=== PATIENT | male | born 1975 | race Caucasian/White ===

== ENCOUNTER 2024-02-17 01:45 | Emergency (ER) | payer BC, SELFPAY ==
[2024-02-17 01:49] VITALS: BP 139/97
[2024-02-17 01:51] VITALS: BP 139/97
--- NOTE | 2024-02-17 02:47 | ED.SKININJ ---
HPI-Injury
General
Chief Complaint: Skin Problem
Source: patient
Exam Limitations: none
Time Seen by Provider: 02/17/24 02:32
Nursing documentation reviewed up to this point in time: agreed with
History of Present Illness-Injury
Initial Injury comments:
Pleasant 48-year-old male presents to the emergency department with a small comedone on his left upper lateral thigh. Patient has been using Preparation H for hemorrhoid and he feels that this may be an allergic reaction. Denies fever, chills,
nausea or vomiting. Reports no chest pain or shortness of breath. Reports no other lesions or rash.
Past History
Past History
ED Past Medical History: GERD and Other (Pneumonia, Renal calculus, eczema)
ED Past Surgical History: Appendectomy and Urological (Kidney stone removal)
Patient has exhibited threatening behavior?: No
Social History
Tobacco: Non-smoker
Alcohol: None
Drug: None
Personal: Single
Living: with family
Employment: Employed (two jobs)
Family History
Family History: Other (Noncontributory)
Review of Systems
Review of Systems
Allergies reviewed?: Yes
All Other Systems: ROS reviewed and negative except as documented in HPI and ROS
Constitutional: Reports no symptoms
EENT: Reports no symptoms
Respiratory: Reports no symptoms
Cardiac: Reports no symptoms
ABD/GI: Reports no symptoms
: Reports no symptoms
Musculoskeletal: Reports no symptoms
Skin: Reports other (Small area of erythema to the left lateral upper thigh)
Neurological: Reports no symptoms
Endocrine: Reports no symptoms
Hematologic/Lymphatic: Reports no symptoms
Psychiatric: Reports anxiety
Phy Exam
General Physical Exam
General Presentation: well appearing and no apparent distress
General Skin: warm and dry
General Habitus: normal
General Mental: alert
General Hydration: appears well hydrated
ENT Exam
ENT Exam: EOMI, pharynx normal, neck supple and normocephalic
Eye Exam
Eye Exam: PERRL, cornea clear and conjunctiva normal
Cardiovascular Exam
Cardiovascular Exam: regular rate/rhythm, no edema, no murmur and normal peripheral pulses
Pulmonary Exam
Pulmonary Exam: lungs clear, no respiratory distress, no rales, no crackles, no rhonchi, no stridor, no wheezing and no cough
Gastrointestinal Exam
Gastrointestinal Exam: normal bowel sounds, non tender, soft, no organomegaly, no pulsatile mass and non distended
Neurological Exam
Neurological Exam: alert, oriented x3, no motor deficits and speech normal
Musculoskeletal Exam
Musculoskeletal Exam: full ROM and no edema
Skin Exam
Skin Exam: normal color, warm/dry, no rash, no petechia and redness (Area of redness about 1 cm in diameter on the left thigh. No evidence of cellulitis.)
Psychiatric Exam
Psychiatric Exam: normal mood/affect
Course
Vital Signs
Initial and Last Documented VS:
Initial Vital Signs
Temp Pulse Resp BP Pulse Ox
98.7 F 104 20 139/97 96
02/17/24 01:49 02/17/24 01:49 02/17/24 01:49 02/17/24 01:49 02/17/24 01:49
Last Documented Vital Signs
Temp Pulse Resp BP Pulse Ox
98.3 F 100 18 129/100 97
02/17/24 02:58 02/17/24 02:58 02/17/24 02:58 02/17/24 02:58 02/17/24 02:58
*Critical Care Note
Total Time (30-74mins, 75-104mins- exclusive of procedures): Not Applicable
ED Attending Note
-
Portions of this chart may have been created with voice recognition software.� Occasional wrong word or��sound alike� substitutions may have occurred due to the inherent limitations of voice recognition software.
Discharge Plan
Departure
Patient Disposition: Home (Routine Discharge)
Date of Disposition: 02/17/24
Time of Disposition: 03:01
Patient with high blood pressure during this ER visit?: Yes
Condition: Good
Discharge Problem:
early abscess, Hemorrhoid
Instructions: Wound Care (DC), BLOOD PRESSURE
Prescriptions:
New
hydrocortisone acetate [Anusol-HC] 25 mg suppository
25 mg DC HS Qty: 12 0RF
No Action
gentamicin 0.3 % drops
1 drp ophthalmic (eye) QID Qty: 5 0RF
Referrals:
[facility] [Outside]
Jay Jay Sheppard MD [Family Provider] - As needed
Activity Restrictions/Additional Instructions:
Your prescriptions were sent electronically to the pharmacy that you specified.
It was a pleasure meeting you and taking part in your care. We hope for your continued healing and wellness.
Please read discharge instructions in their entirety. However, they are for general education and may not describe your exact diagnosis at discharge. Information on your ER visit and medical conditions were discussed with you along with appropriate
follow up information...
If indicated, please take your medications as instructed and indicated on discharge paperwork.
Please schedule a follow up appointment as directed. Call to schedule an appointment
Please return to the emergency department with ANY change in, persisting, or worsening of symptoms. If any of your symptoms do not improve, or persist, or become more severe within 6-12 hours, please return to the emergency department for further
care.
Please return to the emergency department if you develop a headache, neck pain/stiffness, fever greater than 100.4F, chest pain, shortness of breath, persistent nausea, vomiting, slurred speech, difficulty walking, numbness/tingling, weakness, signs
of infection or any other symptoms that are worrisome to you.
If you have any questions or concerns please do not hesitate to call the Hospital at or E-mail me directly at [email or web address]
Interventions
Interventions:
*Risk Screen - Suicide Last Done: 02/17/24 01:51
*General Assessment Last Done: 02/17/24 01:51
*Neglect/Abuse Screening Last Done: 02/17/24 01:51
ED- Fall Risk Assessment Last Done: 02/17/24 01:51
*ED COVID-19 Vaccine History Last Done: 02/17/24 01:51
ED-Skin Assessment Last Done: 02/17/24 02:59
Discharge Date and Time
Print Language: PORTUGUESE
[2024-02-17 02:56] VITALS: BMI 37.3
[2024-02-17 02:58] VITALS: BP 129/100
== END 2024-02-17 03:26 | disposition home or self-care (01) ==
LOC: EMR 01:45
PROVIDERS: EMERGENCY PHYSICIAN Student in an Organized Health Care Education/Training Program; FAMILY PHYSICIAN Family Medicine
DX: K64.9 Unspecified hemorrhoids (principal); K21.9 Gastro-esophageal reflux disease without esophagitis; Z87.442 Personal history of urinary calculi; Z90.49 Acquired absence of other specified parts of digestive tract
CPT/HCPCS: 99282

== ENCOUNTER → 2024-06-15 14:34 | Outpatient (REF) | payer BC, SELFPAY | LOC: HWRAD 14:34 | PROVIDERS: ATTENDING PHYSICIAN Student in an Organized Health Care Education/Training Program | DX: R10.84 Generalized abdominal pain (principal) | CPT/HCPCS: 76700 ==

== ENCOUNTER 2024-08-22 02:50 | Emergency (ER) | payer BC, SELFPAY ==
[2024-08-22 02:53] VITALS: BP 150/86
--- NOTE | 2024-08-22 03:15 | ED.GENMED ---
History of Present Illness
General
Chief Complaint: Flank Pain
Source: patient
Exam Limitations: none
Time Seen by Provider: 08/22/24 02:58
Nursing documentation reviewed up to this point in time: agreed with
History of Present Illness
History of Present Illness:
This is a 49-year-old male with a past medical history of GERD, kidney stones who presents emergency department today with concerns of testicular pain for the past 4 days. Patient reports that a few days ago, he noticed that he could not sit down
due to testicular pain. Patient states that this pain does relieve with standing up patient states he is able to localize the pain to his posterior left testicle. Patient states he feels like there is a lump in the back of his left testicle that
is swollen and painful. Denies any fevers or chills or nausea or vomiting. He did brief episode of flank pain today when he was bending over or standing at his desk but states that that resolved pretty quickly. Denies any abdominal pain. He also
states that 2 days ago, he noted a sharp burning sensation, once at the tip of his penis with urination and other felt in the shaft of his penis. Patient denies any rashes or lesions on the genitalia. Patient denies any new sexual partners.
Patient denies any penile discharge. Patient denies any diarrhea or constipation. Of note, patient states that he has been wearing snug/tight pain shorts while exercising and walking recently which she believes may be contributing to his symptoms
Past History
Past History
ED Past Medical History: GERD and Other (Pneumonia, Renal calculus, eczema)
ED Past Surgical History: Appendectomy and Urological (Kidney stone removal)
Patient has exhibited threatening behavior?: No
Social History
Tobacco: Non-smoker
Alcohol: None
Drug: None
Personal: Single
Living: with family
Employment: Employed (two jobs)
Family History
Family History: Other (Noncontributory)
Review of Systems
Review of Systems
All Other Systems: ROS reviewed and negative except as documented in HPI and ROS
Phy Exam
Physical Exam
Physical Exam:
General: Patient is well appearing and in no acute distress; non-toxic
Skin: Warm and dry, no rashes or lesions
Head: Normocephalic, atraumatic
Eyes: Sclera non-icteric. EOMs intact. PERRLA.
Cardiac: Regular rate and rhythm, no murmurs
Peripheral Vascular: No lower extremity swelling or edema
Pulm: Normal respiratory effort
Abdomen: No abdominal tenderness to palpation, no abdominal masses
Genitourinary: No palpable inguinal hernia. No palpable testicular masses. Tenderness to palpation noted to the left posterior testicle.
Neuro: CN II-XII intact, no focal neurologic deficits.
Psychiatric: Appropriate mood and affect.
Course
Orders/Labs/Results
Orders:
Orders
08/22/24 03:32
Urine Microscopic Reflex Cult Urgent
Urine Reflex Culture from [facility] [Urinalysis Reflex To Culture] Urgent
Date Specimen was Collected: 08/22/24
Time Specimen was Collected: 03:29
08/22/24 03:42
US Scrotum Urgent
Comment:
Reason For Exam: left posterior testicular pain
08/22/24 03:51
Complete Blood Count/With Diff Urgent
Comprehensive Metabolic Panel Urgent
Abnormal Lab Results
08/22/24 08/22/24
03:32 03:51
RDW 14.6 H %
(11.5-14.5)
Abs Immat Gran (auto) 0.1 H 10^3/uL
(0-0.05)
Absolute Neuts (auto) 7.3 H 10^3/uL
(1.4-6.5)
Absolute Monos (auto) 0.7 H 10^3/uL
(0.1-0.6)
Immature Gran % 0.7 H %
(0-0.5)
Lymphocytes % 20.1 L %
(20.5-51.1)
Sodium 148 H mmol/L
(135-145)
Chloride 110 H mmol/L
(98-107)
Glucose 110 H mg/dl
(70-99)
Ur Occult Blood Reflex 1+ A
(Negative)
Urine Bacteria (Reflex) Few A
(Negative)
Urine Albumin (Reflex) 2+ A
(Neg - Trace)
08/22/24 03:51
08/22/24 03:51
Vital Signs
Initial and Last Documented VS:
Initial Vital Signs
Temp Pulse Resp BP Pulse Ox
98.3 F 104 24 150/86 98
08/22/24 02:53 08/22/24 02:53 08/22/24 02:53 08/22/24 02:53 08/22/24 02:53
Last Documented Vital Signs
Temp Pulse Resp BP Pulse Ox
98.3 F 64 18 137/84 99
08/22/24 02:53 08/22/24 05:36 08/22/24 05:36 08/22/24 05:36 08/22/24 05:36
MDM/Problems Addressed
Differential Diagnosis Includes:
Differentials include UTI, BPH, epididymitis, orchitis, hydrocele, testicular trauma
MDM/Problems Addressed:
49-year-old male with a past medical history of GERD, renal stones, presents emergency department today with concerns of testicular pain for the past few days. Is associated with a day or 2 of dysuria and penile pain. He has no penile discharge.
Of note, patient states that he been wearing tight fitting shorts to wear while exercising. On exam he is afebrile but he does have tenderness to the left posterior testicle. CBC and CMP are unremarkable. His urinalysis does not show any evidence
of acute infection. His ultrasound is negative for any acute abnormalities. In light of tenderness to palpation in light of patient's symptoms, did offer levofloxacin to treat empirically for possible epididymitis. Patient states that he will
take the prescription and reassess with his primary doctor tomorrow to schedule appointment to get their opinion and further treatment. Think is reasonable. Patient stable for discharge.
Chronic conditions affecting care:
GERD
*Pulse Oximetry
Patient hypoxic: no
*Critical Care Note
Total Time (30-74mins, 75-104mins- exclusive of procedures): Not Applicable
Data Reviewed
Review of Other/Old Records Reveals: Records (Reviewed ER physician documentation from 02/17/24 symptoms 24 patient seen for hemorrhoid)
Source: patient and records
Patient Management
Escalation/DeEscalation of care consider admission/obs:
Admit not indicated, patient stable for discharge, case reviewed with attending
ED Attending Note
-
Portions of this chart may have been created with voice recognition software.� Occasional wrong word or��sound alike� substitutions may have occurred due to the inherent limitations of voice recognition software.
Discharge Plan
Departure
Patient Disposition: Home (Routine Discharge)
Date of Disposition: 08/22/24
Time of Disposition: 06:11
Patient with high blood pressure during this ER visit?: Yes
Condition: Good
Discharge Problem:
Left testicular pain
Instructions: Epididymitis and orchitis, Testicular Injury, BLOOD PRESSURE
Prescriptions:
New
levofloxacin 500 mg tablet
500 mg PO DAILY 10 Days Qty: 10 0RF
Referrals:
Jay Jay Sheppard MD [Family Provider] -
Stand Alone Forms: Return to Work
Activity Restrictions/Additional Instructions:
Your ultrasound did not show any evidence of epididymitis. Levofloxacin sent to your pharmacy. You can take 1 tablet twice daily for 10 days. Please follow-up with your primary care provider tomorrow with your scheduled appointment and discuss
your continued symptoms.
I recommend buying scrotal support from [facility].
PLEASE RETURN EMERGENCY DEPARTMENT SHOULD YOU DEVELOP AN ACUTE WORSENING OR SYMPTOMS, CHEST PAIN, SHORTNESS OF BREATH, BURNING WITH URINATION, BLOOD IN YOUR URINE, FLANK PAIN, FEVERS OR CHILLS, OR ANY OTHER SIGNS OR SYMPTOMS WORRISOME TO YOU.
Interventions
Interventions:
*Risk Screen - Suicide Last Done: 08/22/24 03:29
*General Assessment Last Done: 08/22/24 03:29
*Neglect/Abuse Screening Last Done: 08/22/24 03:29
*ED- Fall Risk Assessment Last Done: 08/22/24 03:29
*ED COVID-19 Vaccine History Last Done: 08/22/24 03:31
*Nursing Disposition Last Done: 08/22/24 06:30
SR-Musnua-Cybqmtmkjn Assessment Last Done: 08/22/24 03:29
ED-Male Genitourinary Assessment Last Done: 08/22/24 03:29
Discharge Date and Time
Discharge Date/Time: 08/22/24 06:30
Print Language: BELARUSIAN
[2024-08-22 03:43] LABS: Urine Albumin 2+ (Neg - Trace); Urine Bilirubin Negative (Negative); Urine Character Clear (Clear); Urine Color Yellow; Urine Glucose Negative (Negative); Urine Ketone Negative (Negative); Urine Leukocyte Negative (Negative); Urine Nitrite Negative (Negative); Urine Occult Blood 1+ (Negative); Urine Urobilinogen Negative (Neg - 1+)
[2024-08-22 04:00] LABS: % Eosinophils 1.7 % (0-6); % Immature Granulocytes 0.7 % (0-0.5); % Lymphocytes 20.1 % (20.5-51.1); % Monocytes 7.1 % (1.7-9.3); % Neutrophils 69.4 % (42.2-75.2); Absolute Basophils 0.1 10^3/uL (0-0.2); Absolute Eosinophils 0.2 10^3/uL (0-0.7); Absolute Immature Granulocytes 0.1 10^3/uL (0-0.05); Absolute Lymphocytes 2.1 10^3/uL (1.2-3.4); Absolute Monocytes 0.7 10^3/uL (0.1-0.6); Absolute Neutrophils 7.3 10^3/uL (1.4-6.5); Hematocrit 42.5 % (39.0-52.0); Hemoglobin 14.9 g/dL (13.0-18.0); Mean Corp Hgb Conc. 35.1 g/dL (33.0-37.0); Mean Corpuscular Hgb 29.5 pg (27.0-31.0); Mean Corpuscular Volume 84.2 fL (80.0-94.0); Mean Platelet Volume 9.5 fL (7.4-10.4); Nucleated Red Blood Cells % 0 % (-); Platelet Count 266 10^3/uL (130-400); Red Blood Cell Count 5.05 10^6/uL (4.70-6.10); Red Cell Dist. Width 14.6 % (11.5-14.5); White Blood Cell Count 10.5 10^3/uL (4.8-10.8)
[2024-08-22 04:11] LABS: Urine Mucus Few
[2024-08-22 04:12] LABS: Urine Bacteria Few (Negative); Urine Red Blood Cell 0-2 /HPF (0-2); Urine Squamous Cell 0-2 /LPF (Few)
[2024-08-22 04:35] LABS: ALT (SGPT) 35 U/L (0-50); AST (SGOT) 28 U/L (17-59); Albumin 4.7 g/dl (3.5-5.0); Alkaline Phosphatase 97 U/L (38-126); Blood Urea Nitrogen 19 mg/dl (9-20); Calcium 9.8 mg/dl (8.4-10.2); Carbon Dioxide 26 mmol/L (22-30); Chloride 110 mmol/L (98-107); Glucose 110 mg/dl (70-99); Potassium 4.3 mmol/L (3.5-5.1); Sodium 148 mmol/L (135-145); Total Bilirubin 0.8 mg/dl (0.2-1.3); Total Protein 7.8 g/dl (6.3-8.2); eGFR > 60.00
[2024-08-22 05:36] VITALS: BP 137/84
== END 2024-08-22 06:30 | disposition home or self-care (01) ==
LOC: EMR 02:50
PROVIDERS: Physician Assistant; EMERGENCY PHYSICIAN Student in an Organized Health Care Education/Training Program; FAMILY PHYSICIAN Family Medicine
DX: N50.812 Left testicular pain (principal); K21.9 Gastro-esophageal reflux disease without esophagitis; L30.9 Dermatitis, unspecified; Z87.442 Personal history of urinary calculi; Z90.49 Acquired absence of other specified parts of digestive tract
CPT/HCPCS: 99284; 76870; 80053; 81003; 81015; 85025; 93976

== ENCOUNTER 2025-04-25 00:58 | Emergency (ER) | payer BC, SELFPAY ==
[2025-04-25 01:03] VITALS: BP 158/100
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
== END 2025-04-25 03:36 | disposition home or self-care (01) ==
LOC: EMR 00:58
PROVIDERS: EMERGENCY PHYSICIAN Emergency Medicine; FAMILY PHYSICIAN Family Medicine
DX: S46.011A Strain of muscle(s) and tendon(s) of the rotator cuff of right shoulder, initial encounter (principal); Z87.11 Personal history of peptic ulcer disease; Z90.49 Acquired absence of other specified parts of digestive tract
CPT/HCPCS: 99283; 73030